=== PATIENT | female | born 1950 | race Caucasian/White ===

== ENCOUNTER → 2017-04-08 | Outpatient (CLI) | payer MEDICARE, MEDICAID ==
[2014-02-16 13:25] VITALS: BP 151/82
[~2017-04-08] MED LIST: GOOD SENSE ASPI81 M1 PO; LOPRESSOR100 MG PO; METOPROLOL SUCC50 MG PO
== END ==
LOC: MAMMO 08:36
DX: Z12.31 Encounter for screening mammogram for malignant neoplasm of breast (principal)
CPT/HCPCS: G0202

== ENCOUNTER 2019-01-21 19:09 | Emergency (ER) | payer MEDICARE, MEDICAID ==
[2019-01-21 20:05] LABS: BASO # 0.1 (0.02-0.10); EOS # 0.1 (0.04-0.40); EOS % 1.6 % (1.0-5.0); HEMATOCRIT 39.5 % (37.0-47.0); HEMOGLOBIN 12.5 g/dL (12.5-16.0); LYMPH# 2.3 (1.50-4.00); MEAN CELL VOLUME 92 fl (78-100); MEAN CORPUSCULAR HEMOGLOBIN 29 pg (27-31); MEAN CORPUSCULAR HGB CONC 32 g/dL (33-37); MEAN PLATELET VOLUME 10.6 fl (7.4-10.4); MONO # 0.7 (0.20-0.80); NEU # 3.9 (1.40-6.50); PLATELET COUNT 234 K/mm3 (130-400); RED BLOOD COUNT 4.31 M/mm3 (4.10-5.30); RED CELL DISTRIBUTION WIDTH 14.4 % (11.5-14.5); WHITE BLOOD COUNT 7.1 K/mm3 (4.8-10.8)
[2019-01-21 20:15] LABS: ALBUMIN 4.5 g/dL (3.5-5.0); CALCIUM 11.4 mg/dL (8.4-10.2); POTASSIUM 3.8 mmol/L (3.6-5.0); TOTAL BILIRUBIN 0.9 mg/dL (0.2-1.3); TOTAL PROTEIN 8.4 g/dL (6.3-8.2)
[2019-01-21 21:12] LABS: URINE APPEARANCE CLOUDY; URINE BILIRUBIN NEGATIVE (NEGATIVE); URINE BLOOD 50 ery/uL (NEGATIVE); URINE COLOR YELLOW; URINE GLUCOSE NEGATIVE (NEGATIVE); URINE KETONE NEGATIVE (NEGATIVE); URINE LEUKOCYTE ESTERASE 1+ (NEGATIVE); URINE NITRATE POSITIVE (NEGATIVE); URINE PROTEIN(semi-quant) TRACE mg/dL (NEGATIVE); URINE UROBILINOGEN NORMAL (NORMAL)
[2019-01-21] MEDS ORDERED: CEPHALEXIN250 MG/5 M PO (21:55)
[2019-01-21 22:02] VITALS: BP 172/97
== END 2019-01-21 22:02 | disposition home or self-care (01) ==
LOC: ED 19:09
PROVIDERS: Nurse Practitioner
DX: N39.0 Urinary tract infection, site not specified (principal); I10 Essential (primary) hypertension; E07.9 Disorder of thyroid, unspecified; Z91.19 Patient's noncompliance with other medical treatment and regimen; Z90.49 Acquired absence of other specified parts of digestive tract
CPT/HCPCS: A4216; J0696; J7030; Q9967

== ENCOUNTER → 2020-07-19 | Outpatient (CLI) | payer MEDICARE, MEDICAID ==
[~2020-07-19] MED LIST changes: +CEPHALEXIN250 MG/5 M PO
== END ==
LOC: MAMMO 14:29
DX: M81.0 Age-related osteoporosis without current pathological fracture (principal)

== ENCOUNTER → 2020-07-19 | Outpatient (CLI) | payer MEDICARE, MEDICAID | LOC: MAMMO 14:29 | DX: Z12.31 Encounter for screening mammogram for malignant neoplasm of breast (principal); N63.10 Unspecified lump in the right breast, unspecified quadrant ==

== ENCOUNTER → 2021-12-31 | Outpatient (CLI) | payer MEDICARE, MEDICAID ==
[2021-12-31 14:35] LABS: ALBUMIN 4.3 g/dL (3.4-4.8); POTASSIUM 4.1 mmol/L (3.5-5.1)
[2021-12-31 14:36] LABS: CALCIUM 12.3 mg/dL (8.3-10.5)
[2021-12-31 14:38] LABS: TOTAL PROTEIN 8.3 g/dL (6.2-8.1)
[2021-12-31 14:39] LABS: TOTAL BILIRUBIN 1.2 mg/dL (0.2-1.2)
[2022-01-01 01:04] LABS: PTH,INTACT 230.2 pg/mL (6.6-88.9)
[2022-01-01 06:39] LABS: CALCIUM, IONIZED, SERUM 1.72 mmol/L (1.19-1.41)
== END ==
LOC: LAB 12:37
PROVIDERS: Internal Medicine
DX: I10 Essential (primary) hypertension (principal); K90.9 Intestinal malabsorption, unspecified; N20.0 Calculus of kidney; G60.9 Hereditary and idiopathic neuropathy, unspecified; E78.2 Mixed hyperlipidemia

== ENCOUNTER → 2022-04-16 | Outpatient (CLI) | payer MEDICARE, MEDICAID ==
[2022-04-16 14:39] LABS: BASO # 0.06 K/mm3 (0.02-0.10); EOS # 0.07 K/mm3 (0.04-0.40); EOS % 1.1 % (1.0-5.0); HEMATOCRIT 41.2 % (37.0-47.0); HEMOGLOBIN 13.1 g/dL (12.5-16.0); LYMPH# 1.39 K/mm3 (1.50-4.00); MEAN CELL VOLUME 93 fl (78-100); MEAN CORPUSCULAR HEMOGLOBIN 29 pg (27-31); MEAN CORPUSCULAR HGB CONC 32 g/dL (33-37); MEAN PLATELET VOLUME 10.2 fl (7.4-10.4); NEU # 4.15 K/mm3 (1.40-6.50); PLATELET COUNT 277 K/mm3 (130-400); RED BLOOD COUNT 4.45 M/mm3 (4.10-5.30); RED CELL DISTRIBUTION WIDTH 13.4 % (11.5-14.5); WHITE BLOOD COUNT 6.2 K/mm3 (4.8-10.8)
[2022-04-16 14:57] LABS: ALBUMIN 4.2 g/dL (3.4-4.8); POTASSIUM 4.1 mmol/L (3.5-5.1)
[2022-04-16 14:58] LABS: CALCIUM 12.3 mg/dL (8.3-10.5)
[2022-04-16 15:00] LABS: TOTAL PROTEIN 8.2 g/dL (6.2-8.1)
[2022-04-16 15:02] LABS: TOTAL BILIRUBIN 0.9 mg/dL (0.2-1.2)
[2022-04-16 22:38] LABS: PTH,INTACT 223.5 pg/mL (6.6-88.9)
[2022-04-17 00:12] LABS: CALCIUM, IONIZED, SERUM 1.98 mmol/L (1.19-1.41)
== END ==
LOC: LAB 14:19
PROVIDERS: Internal Medicine
DX: M85.80 Other specified disorders of bone density and structure, unspecified site (principal); E78.2 Mixed hyperlipidemia; E55.9 Vitamin D deficiency, unspecified; E53.8 Deficiency of other specified B group vitamins; K90.9 Intestinal malabsorption, unspecified; I10 Essential (primary) hypertension

== ENCOUNTER → 2022-12-25 | Outpatient (CLI) | payer MEDICARE, MEDICAID ==
[~2022-12-25] MED LIST changes: +CEPHALEXIN500 M2 PO; +LOSARTAN POTAS100 MG PO
[2022-12-25 22:16] LABS: ESTRADIOL <10 pg/mL (()); FOLLICLE STIMULATING HORMONE 42.1 mIU/mL (()); PROGESTERONE 0.3 ng/mL (())
== END ==
LOC: LAB 14:58
DX: D35.2 Benign neoplasm of pituitary gland (principal)

== ENCOUNTER 2023-01-16 14:03 | Emergency (ER) | payer MEDICARE, MEDICAID ==
[~2023-01-16] VITALS: Ht 157.5 cm; Wt 62.0 kg
[2023-01-16] MEDS ORDERED: ATORVASTATIN CA20 MG PO (14:37)
[2023-01-16] MEDS ORDERED: vitamin b12 PO (14:38)
[2023-01-16] MEDS ORDERED: VITAMIN B6 PO (14:38)
[2023-01-16 15:50] LABS: HEMATOCRIT 36.3 % (37.0-47.0); HEMOGLOBIN 11.7 g/dL (12.5-16.0); MEAN CELL VOLUME 93 fl (78-100); MEAN CORPUSCULAR HEMOGLOBIN 30 pg (27-31); MEAN CORPUSCULAR HGB CONC 32 g/dL (33-37); MEAN PLATELET VOLUME 10.2 fl (7.4-10.4); RED BLOOD COUNT 3.91 M/mm3 (4.10-5.30); RED CELL DISTRIBUTION WIDTH 13.9 % (11.5-14.5); WHITE BLOOD COUNT 15.5 K/mm3 (4.8-10.8)
[2023-01-16 15:57] LABS: ALBUMIN 3.8 g/dL (3.4-4.8); POTASSIUM 4.6 mmol/L (3.5-5.1)
[2023-01-16 15:58] LABS: SODIUM 139 mmol/L (136-145)
[2023-01-16 16:00] LABS: GLUCOSE 134 mg/dL (65-105); TOTAL PROTEIN 8.4 g/dL (6.2-8.1)
[2023-01-16 16:01] LABS: CARBON DIOXIDE 23 mmol/L (23-31)
[2023-01-16 16:02] LABS: TOTAL BILIRUBIN 1.3 mg/dL (0.2-1.2)
[2023-01-16 16:05] LABS: AST-SGOT 153 U/L (5-34)
[2023-01-16 16:06] LABS: ALT/SGPT 125 U/L (0-55)
[2023-01-16 16:14] LABS: PROTHROMBIN TIME 11.2 SECONDS (9.0-12.0)
[2023-01-16 16:15] LABS: CALCIUM 13.7 mg/dL (8.3-10.5); TROPONIN-I < 0.030 ng/mL (<0.030)
[2023-01-16 16:28] LABS: LYMPHOCYTE 4 % (20-51); MONOCYTE 5 % (3-10); NEUTROPHILS 91 % (42-75)
[2023-01-16 16:31] LABS: HYPOCHROMIA 1+
[2023-01-16 16:33] LABS: PLATELET COUNT 296 K/mm3 (130-400)
[2023-01-16 17:00] VITALS: BP 139/69
== END 2023-01-16 18:10 | disposition other institution (70) ==
LOC: ED 14:03
PROVIDERS: Family Medicine
DX: I82.402 Acute embolism and thrombosis of unspecified deep veins of left lower extremity (principal); I26.99 Other pulmonary embolism without acute cor pulmonale; Z28.310 Unvaccinated for COVID-19
CPT/HCPCS: J7030; Q9967

== ENCOUNTER → 2023-11-04 | Outpatient (CLI) | payer MEDICARE, MEDICAID ==
[~2023-11-04] MED LIST changes: +AMOXICILLIN 50500 MG PO; +ATORVASTATIN CA20 MG PO; +DOXYCYCLINE MO100 M3 PO; +ELIQUIS5 MG PO; +VITAMIN B6 PO; +vitamin b12 PO
== END ==
LOC: RAD 16:32
DX: R05.9 Cough, unspecified (principal)

== ENCOUNTER → 2024-01-06 | Outpatient (CLI) | payer MEDICARE, MEDICAID ==
[~2024-01-06] VITALS: Ht 157.5 cm; Wt 54.0 kg
[~2024-01-06] MED LIST changes: +ATIVAN1 M1 PO; +NS 1,000 ML IV SCH
[2024-01-06 15:41] VITALS: BP 152/87
[2024-01-06 16:54] VITALS: BP 165/83
[2024-01-06 18:01] VITALS: BP 164/89
== END ==
LOC: AMSURD 11:05
DX: E83.52 Hypercalcemia (principal); E86.0 Dehydration
CPT/HCPCS: J7030

== ENCOUNTER → 2024-03-23 | Outpatient (CLI) | payer MEDICARE, MEDICAID ==
[~2024-03-23] MED LIST changes: -NS 1,000 ML IV SCH
[2024-05-13 12:00] LABS: ALBUMIN 4.3 g/dL (3.4-4.8); CALCIUM 11.7 mg/dL (8.3-10.5); MAGNESIUM 2.17 mg/dL (1.60-2.60); TOTAL BILIRUBIN 1.1 mg/dL (0.2-1.2)
== END ==
LOC: LAB 08:00
PROVIDERS: Internal Medicine
DX: K90.9 Intestinal malabsorption, unspecified (principal); E78.2 Mixed hyperlipidemia; I10 Essential (primary) hypertension